=== PATIENT | male | born 1950 | race Caucasian/White ===

== ENCOUNTER 2016-10-12 11:17 | Observation (INO) ==
[2016-10-12] MEDS ORDERED: ZOFRAN IV PRN (13:31)
[2016-10-12] MEDS ORDERED: DEMEROL IV PRN (14:39)
--- NOTE | 2016-10-12 14:59 | Diag Imaging Result Document ---
PROCEDURE NAME: HEAD W/O CONTRAST - 10/12/2016 CT BRAIN WITHOUT Dose reduction protocol. No comparison film. No parenchymal hemorrhage. No epidural or subdural hematoma. No subarachnoid hemorrhage. No mass identified on this noncontrasted exam. No hydrocephalus. No sinus opacification. No air fluid levels. IMPRESSION: No hemorrhage. Negative brain CT without contrast.
--- NOTE | 2016-10-12 15:12 | HISTORY AND PHYSICAL ---
PRIMARY CARE PHYSICIAN: Dr. Clark. CHIEF COMPLAINT: Headache, dizziness and left ear pain that began last night. HISTORY OF PRESENTING ILLNESS: This is a 66-year-old male who presented from his primary care physician's office with complaints of dizziness, headache that was positional and left ear pain. It is noted that the patient had a lumbar surgery 7 days ago today. Last night he began having dizziness, headaches that were positional and left ear pain. He is noted to have a swollen lymph node around the parotid gland. States that nothing has made the headache better overall, sometimes changing positions will help momentarily but it returns. His primary care physician attempted to talk with the surgeon that did the lumbar surgery. He was out of the office today and spoke with the on-call physician who felt that it was highly unlikely that the headaches and dizziness would be related to the spinal that he received. He felt that he should have a workup for the dizziness, headaches and left ear pain and if all of that was negative then we would look at other options and the possibility of transferring back to their services but at this time he is being admitted to the hospitalist service at [facility]. PAST MEDICAL HISTORY: Of type 2 diabetes. PAST SURGICAL HISTORY: Of a left-sided hernia repair and a lumbar surgery 7 days ago. FAMILY HISTORY: His mother had breast cancer and a father with heart disease. SOCIAL HISTORY: He lives with family. Denies any tobacco, alcohol, or illicit drug use. ALLERGIES: He has no known drug allergies. HOME MEDICATIONS: A current list is being obtained and we will restart those as appropriate as follows. Aspirin 81 mg p.o. daily, Lipitor 20 mg p.o. at bedtime, gabapentin 600 mg p.o. b.i.d., glimepiride 2 mg p.o. at bedtime we will hold, multivitamin 1 p.o. daily, Requip 1 mg p.o. daily and temazepam 30 mg p.o. at bedtime. LABORATORY DATA: Is currently being obtained. We are ordering a CBC, a CMP, a CT of the head without contrast. REVIEW OF SYSTEMS: He denied any fever, chills. He has had some dizziness, headaches, left ear pain. Denied any chest pain, coughing, shortness of breath, constipation, diarrhea, burning or hurting with urination. PHYSICAL EXAMINATION: GENERAL: This is a 66-year-old male who is lying in the bed, answers questions appropriately. HEENT: Normocephalic and atraumatic. Pupils are equal, round, reactive to light. Extraocular movements are intact. Oropharynx and nares are clear. NECK: The patient is noted on his left parotid gland to have a lymphadenopathy tender to touch. It is not red or warm. The patient also complained of left ear pain. LUNGS: Clear to auscultation bilaterally with equal lung expansion and chest wall movement. HEART: With regular rate and rhythm. No murmurs, rubs, or gallops. ABDOMEN: Soft, nontender, nondistended. Bowel sounds are present x4 quadrants. EXTREMITIES: No clubbing, cyanosis, or edema. NEUROLOGICAL: The cranial nerves 2-12 appear grossly intact. ASSESSMENT: 1. Dizziness. 2. Headache. 3. Left ear otalgia. 4. Left side periauricular adenopathy. PLAN: He is being admitted to the medical unit at [facility]. Placed on telemetry, diabetic diet. Pattern blood sugars with sliding scale insulin. We are checking a CBC and CMP and a head CT without contrast. Place him on normal saline at 75 mL an hour, Demerol 25 IV q.4 hours p.r.n., Zofran 4 mg IV q.4 hours p.r.n., Tylenol 650 mg p.o. q.4 hours p.r.n. and continue home medications. Further orders pending review of labs and radiologic studies. It is felt this is most likely going to be related to something with his left ear pain and periauricular lymphadenopathy but again will look over the results. Dictated by YOCASTA Garcia for Martín Aburto MD
[2016-10-12] MEDS: NS 1,000 ML IV PRN (15:22)
[2016-10-12 15:28] LABS: MANUAL DIFF NEEDED? NO
[2016-10-12 15:31] LABS: BASO% 0.5 % (0.0-0.8); EOS# 0.11 X1000 (0.0-0.7); EOS% 1.2 % (0.0-10.0); HEMATOCRIT 43.1 % (42.0-52.0); HEMOGLOBIN 14.7 g/dL (14.0-18.0); IMM GRAN# 0.02 X1000 (0.0-0.04); IMM GRAN% 0.2 % (0.0-0.5); LYMPH# 1.49 X1000 (1.2-3.4); LYMPH% 16.9 % (20.5-51.1); MCH 31.2 PG (27-31); MCHC 34.1 g/dL (33-37); MCV 91.5 FL (81-99); MONO# 0.43 X1000 (0.11-0.59); MONO% 4.9 % (1.7-9.3); MPV 10.8 FL (7.4-10.4); NEUT% 76.3 % (42.2-75.2); PLT 171 X1000 (130-400); RBC 4.71 XMIL (4.7-6.1)
[2016-10-12 15:51] LABS: AGAP 9; ALBUMIN 4.2 g/dL (3.5-5.0); ALKALINE PHOSPHATASE 87 U/L (32-122); BUN 13 mg/dL (8-22); CALCIUM 9.1 mg/dL (8.8-10.2); CHLORIDE 103 mmol/L (98-107); COSMO 280; GOT 14 U/L (10-34); GPT 21 U/L (10-44); POTASSIUM 4.9 mmol/L (3.5-5.1); SODIUM 138 mmol/L (136-145); TCO2 26 mmol/L (25-35); TOTAL PROTEIN 6.3 g/dL (6.3-8.3)
[2016-10-12] MEDS: HUMALOG DOSE (PARKWAY) SUBQ SCH ×2 (16:06→21:42)
[2016-10-12] MEDS ORDERED: DILAUDID IV PRN (18:28)
[2016-10-12] MEDS ORDERED: LIPITOR PO SCH (21:00)
[2016-10-12] MEDS ORDERED: RESTORIL PO SCH (21:00)
[2016-10-12] MEDS: TYLENOL PO PRN (21:12)
[2016-10-12] MEDS: NEURONTIN PO SCH (21:12)
[2016-10-13] MEDS: NS 1,000 ML IV PRN (02:20)
--- NOTE | 2016-10-13 07:58 | PROGRESS NOTE ---
DATE: 10/13/2016 SUBJECTIVE: Patient notes his headache is a little bit better. He is having a little bit less dizziness although he has not been out of bed this morning. Notes that his ear pain also is better. He is still having some swelling on his left parotid, but this also appears to be better. OBJECTIVE: Vital Signs: Reviewed and stable. HEENT: Normocephalic, atraumatic. He has less swelling on his left parotid area than he did on yesterday's exam. Neck: Supple. CV: Regular rate. Chest: Relatively clear. Abdomen: Soft. Neurologic: Patient is awake, alert, oriented. He has no focal deficits. DIAGNOSTIC DATA: Pending. ASSESSMENT: 1. Dizziness. 2. Headache. 3. Left-sided preauricular adenopathy and swelling. 4. Left ear pain. PLAN: We will check an MRI of his brain today. We will add Solu-Medrol 80 q.8 h. We will add Levaquin 750. We will saline lock. Should his MRI be negative and symptoms improve this afternoon, he certainly can be discharged home on a Medrol Dosepak and Levaquin. We will continue to follow.
[2016-10-13] MEDS ORDERED: REQUIP PO SCH (09:00)
[2016-10-13] MEDS ORDERED: ASPIRIN PO SCH (09:00)
[2016-10-13] MEDS ORDERED: MULTI-VITAMIN PO SCH (09:00)
[2016-10-13] MEDS: TYLENOL PO PRN (10:34)
[2016-10-13] MEDS: NEURONTIN PO SCH (10:35)
[2016-10-13] MEDS ORDERED: SOLU-MEDROL IV SCH (11:15)
[2016-10-13] MEDS ORDERED: LEVAQUIN 750 MG/D5W 150 ML IV SCH (12:00)
--- NOTE | 2016-10-13 13:30 | Diag Imaging Result Document ---
PROCEDURE NAME: MRI BRAIN W/O CONTRAST - 10/13/2016 MRI BRAIN WITHOUT CONTRAST: COMPARISON: No prior MRI brain is available for comparison. FINDINGS: There is no evidence of acute infarct. There is mild patchy T2/FLAIR hyperintensity in the periventricular and subcortical white matter suggesting mild microangiopathy. There is no discrete intracranial mass, mass effect, or intracranial hemorrhage. There is a tiny right sphenoid sinus mucous retention cyst. There is trace fluid in the left mastoid air cells. Surrounding soft tissues and bony structures are essentially unremarkable, otherwise. IMPRESSION: 1. Suggestion of mild white matter microangiopathy. 2. No definite acute pathology.
[2016-10-13] MEDS: HUMALOG DOSE (PARKWAY) SUBQ SCH ×2 (13:31→16:25)
[2016-10-13] MEDS ORDERED: LEVAQUIN 750 MG in NS 150 ML IV SCH (15:00)
[2016-10-13 16:25] VITALS: BP 159/89
--- NOTE | 2016-10-14 01:37 | DISCHARGE SUMMARY ---
ADMISSION DATE: 10/12/2016 DISCHARGE DATE: 10/13/2016 ADMISSION DIAGNOSES: 1. Dizziness. 2. Headache. 3. Left ear otalgia. 4. Left-sided periauricular adenopathy. DISCHARGE DIAGNOSES: 1. Dizziness, resolved. 2. Headache, improved. 3. Left ear otalgia, improved. 4. Left-sided periauricular adenopathy, improved. SUMMARY OF FINDINGS: This is a 66-year-old male, who presented from his primary care physician's office with complaints of dizziness and headache that was positional and left ear pain. It was noted that the patient had a lumbar surgery approximately 7 days ago. On the day of arrival began having dizziness, headaches that were positional, and left ear pain on the night prior. He saw his primary care physician. He did have some swelling in the lymph nodes around the parotid gland. States that nothing had not made the headaches better overall, sometimes changing positions would momentarily help, but it would return. His primary care physician attempted to talk with the surgeon that did his lumbar surgery. He was out of the office, spoke to the bank reconciliator, who felt that it was highly unlikely that the headaches and dizziness were related to a spinal that he received, since it had been 7 days. So, we admitted him for observation, placed him on IV hydration. We obtained a head CT that showed no hemorrhage, and a negative brain CT without contrast. We obtained a brain MRI that showed suggestion of white matter microangiopathy that was mild and no definite acute pathology. We placed him on Levaquin 750 mg IV q.24, Solu-Medrol 80 mg IV q.8. The patient has had an improvement in his symptoms. He states that his left ear pain is significantly reduced. He is beginning to hear out of his left ear again, and the lymphadenopathy of the parotid gland has gone down significantly also. So, it is felt that he can safely be discharged home. DISCHARGE MEDICATIONS: He will receive a prescription for Levaquin 500 mg 1 p.o. daily for 7 days, and a Medrol Dosepak to take as directed. He will continue his home medications of Lipitor 20 mg p.o. at bedtime, aspirin 81 mg p.o. daily, gabapentin 600 mg p.o. b.i.d., multivitamin p.o. daily, Requip 1 mg p.o. daily, temazepam 30 mg p.o. at bedtime, glimepiride 2 mg p.o. at bedtime. DISCHARGE INSTRUCTIONS: Patient was instructed to monitor his blood pressure closely, as the steroids have a tendency to cause some to have some hypoglycemia. Patient verbalized understanding. FOLLOWUP: He is to follow up with his primary care physician, Dr. Clark, in 1 rule out 2 weeks. All discharge instructions were reviewed, and he verbalized understanding. TIME SPENT: On this discharge 35 minutes. Dictated by YOCASTA Garcia for Martín Aburto MD
== END 2016-10-13 19:35 | disposition home or self-care (01) ==
LOC: P.DIRADM 11:17 → EEVIPCON 11:17 → P.MEDSURG 11:19
PROVIDERS: ADMIT Family Medicine; ATTEND Family Medicine
DX: R51 Headache (principal); R42 Dizziness and giddiness; H92.02 Otalgia, left ear; R41.0 Disorientation, unspecified; R59.0 Localized enlarged lymph nodes; Z98.890 Other specified postprocedural states; E11.9 Type 2 diabetes mellitus without complications; M54.2 Cervicalgia; M54.5 Low back pain; R53.1 Weakness; Z79.899 Other long term (current) drug therapy; Z79.82 Long term (current) use of aspirin; Z79.84 Long term (current) use of oral hypoglycemic drugs; Z80.3 Family history of malignant neoplasm of breast
CPT/HCPCS: 70450; 70551; 80053; 82948; 85025; J1170; J2175; J2930; J7030